=== PATIENT | female | born 1970 ===

== ENCOUNTER 2021-07-04 11:18 | Inpatient (IN) | payer OTHER ==
[~2021-07-04] VITALS: Ht 149.9 cm; Wt 65.8 kg
[2021-07-04] MEDS ORDERED: ZOCOR20 MG PO (15:09)
[2021-07-04] MEDS ORDERED: SYNTHROID75 MCG PO (15:09)
[2021-07-04] MEDS ORDERED: MIRTAZAPINE7.5 MG PO (15:09)
[2021-07-04] MEDS ORDERED: VITAMIN C500 M6 PO (15:10)
[2021-07-08] MEDS ORDERED: FAMOTIDINE20 MG (08:19)
[2021-07-08] MEDS ORDERED: RESTORA RX CAP1 EACH (08:19)
[2021-07-11] MEDS ORDERED: PERCOCET 5-3251 EACH PO (10:09)
[2021-07-11] MEDS ORDERED: OMEPRAZOLE20 MG PO (10:09)
== END 2021-07-11 13:30 | disposition home or self-care (01) | DRG 331 ==
LOC: O/R 07-08 05:33 → SURH 07-08 10:59
PROVIDERS: ADMIT Surgery; ATTEND Surgery
PROC: 0DJD8ZZ Inspection of Lower Intestinal Tract, Via Natural or Artificial Opening Endoscopic (ICD-10-PCS; 2021-07-08)
PROC: 3E0F7GC Introduction of Other Therapeutic Substance into Respiratory Tract, Via Natural or Artificial Opening (ICD-10-PCS; 2021-07-08)
PROC: 0DTE4ZZ Resection of Large Intestine, Percutaneous Endoscopic Approach (ICD-10-PCS; principal; 2021-07-08 11:00)
DX: K57.32 Diverticulitis of large intestine without perforation or abscess without bleeding (principal); J45.20 Mild intermittent asthma, uncomplicated; Z20.822 Contact with and (suspected) exposure to COVID-19